=== PATIENT | female | born 1985 | race Caucasian/White ===

== ENCOUNTER 2018-12-10 09:46 | Outpatient (CLI) | payer OTHER ==
--- NOTE | 2018-12-10 15:02 | MRI Report ---
Reason: RT FOOT METATARSALGIA Procedure Date: 12/10/2018 Accession Number: [id number] / [id number] Procedure: MRI - Foot RT W/O CPT Code: Final Report FULL RESULT: EXAM: RIGHT MIDFOOT MRI WITHOUT CONTRAST EXAM DATE: 12/10/2018 11:37 AM. CLINICAL HISTORY: Right foot metatarsalgia. COMPARISON: None. TECHNIQUE: Multiplanar, multisequence T1-weighted and fluid-sensitive sequences of the midfoot without contrast. Other: None. FINDINGS: Bones and articular surfaces: No evidence of acute fracture or stress reaction. Cartilage thinning and small focus of subchondral marrow edema at the undersurface of the distal first metatarsal at the articulation with the medial sesamoid with tiny marginal osteophyte. No additional marrow signal abnormality. Musculotendinous structures: There is edema involving the visualized fourth dorsal interosseous muscle. The edema is more pronounced distally but seen throughout the muscle. Remaining muscles appear normal with no additional edema. No muscle atrophy or fatty replacement. Visualized flexor and extensor tendons appear grossly intact. Miscellaneous: Minimal dorsal subcutaneous soft tissue edema. IMPRESSION: 1. Prominent edema within the fourth dorsal interosseous muscle. This could represent muscle strain or could represent myositis or denervation edema. 2. 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 [facility]
== END 2018-12-10 09:47 | disposition home or self-care (01) ==
LOC: DI 09:46
PROVIDERS: ATTEND Student in an Organized Health Care Education/Training Program
DX: M19.071 Primary osteoarthritis, right ankle and foot (principal); R60.0 Localized edema

== ENCOUNTER 2018-12-30 07:27 | Outpatient (CLI) | payer OTHER ==
--- NOTE | 2018-12-30 15:55 | MRI Report ---
Reason: PAIN IN LT THUMB Procedure Date: 12/30/2018 Accession Number: [id number] / [id number] Procedure: MRI - Wrist LT W/O CPT Code: Final Report FULL RESULT: EXAM: LEFT WRIST MRI WITHOUT CONTRAST EXAM DATE: 12/30/2018 08:02 AM. CLINICAL HISTORY: Left thumb pain. COMPARISON: None. TECHNIQUE: Multiplanar, multisequence T1-weighted and fluid-sensitive sequences of the wrist and thumb and MCP joints without contrast. Other: None. FINDINGS: Bones: No fractures or subluxations. No marrow edema. No bone lesions. Cartilage: The articular cartilage is unremarkable. The triangular fibrocartilage complex is unremarkable. Ligaments: The scapholunate and lunotriquetral ligaments are intact. The collateral ligaments at the first MCP and first IP joints are intact. Tendons: The extensor compartment I through and flexor tendons are unremarkable. Musculature: No edema or fatty atrophy. Other: The contents of the carpal tunnel, including the median nerve, are unremarkable. Guyons canal is unremarkable. There is an approximately 6 x 3 mm ganglion or synovial cyst dorsal to the lhkitfym-dipgmpfm-sydknr joint and a 9 x 4 mm ganglion or synovial cyst dorsal to the triscaphe joint. No joint effusions. There is mild edema at the dorsal radial aspect of the first MCP joint capsule. Mild subcutaneous edema at the dorsal radial aspect of the first MCP joint. IMPRESSION: 1. Moderate edema at the dorsal radial aspect of the first MCP joint capsule which may represent sprain injury. Mild subcutaneous edema at the dorsal radial aspect of the first MCP joint. No definite ligament tear at the first MC joint. [facility]IA
== END 2018-12-30 07:28 | disposition home or self-care (01) ==
LOC: DI 07:27
PROVIDERS: ATTEND Student in an Organized Health Care Education/Training Program
DX: M79.645 Pain in left finger(s) (principal); R60.0 Localized edema